=== PATIENT | female | born 2000 | race Caucasian/White ===

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

== ENCOUNTER → 2019-01-08 00:28 | Outpatient (CLI) | payer MEDICAID ==
[2018-12-03 03:29] VITALS: BMI 32.2
[~2019-01-08 00:28] MED LIST changes: +MACROBID100 MG PO
== END | disposition home or self-care (01) ==
LOC: D.LDO 00:28
PROVIDERS: ATTEND Obstetrics & Gynecology
DX: O26.892 Other specified pregnancy related conditions, second trimester (principal); Z3A.22 22 weeks gestation of pregnancy

== ENCOUNTER → 2019-04-26 14:13 | Outpatient (CLI) | payer MEDICAID ==
[2018-12-03 03:29] VITALS: BMI 32.2
[~2019-04-26 14:13] MED LIST changes: +HYDROCODON-ACE1 EA10 PO; +MOTRIN600 MG PO
[2019-04-26 15:36] LABS: APPEARANCE CLEAR (CLEAR); BILIRUBIN NEGATIVE (NEGATIVE); COLOR YELLOW (YELLOW); GLUCOSE NEGATIVE (NEGATIVE); KETONE NEGATIVE (NEGATIVE); NITRITE NEGATIVE (NEGATIVE); PROTEIN NEGATIVE (NEGATIVE); SPECIFIC GRAVITY 1.025 (1.005-1.020); UROBILINOGEN NORMAL (NORMAL)
[2019-04-26 15:37] LABS: RED CELLS - URINE OCC /hpf (0-5); WHITE CELLS - URINE 0-5 /hpf (0-5)
[2019-04-26 15:48] LABS: BACTERIA MANY /hpf (NONE SEEN)
== END | disposition home or self-care (01) ==
LOC: D.LDO 14:13
PROVIDERS: ATTEND Obstetrics & Gynecology
DX: O26.899 Other specified pregnancy related conditions, unspecified trimester (principal); Z3A.00 Weeks of gestation of pregnancy not specified

== ENCOUNTER 2019-05-02 04:55 | Inpatient (IN) | payer MEDICAID ==
[2019-05-02] VITALS (11 sets, daily range): BP systolic 95–121; BP diastolic 51–62; Ht 154.9 cm; Wt 86.8 kg
[~2019-05-02] VITALS: Ht 154.9 cm; Wt 86.8 kg
[~2019-05-02 04:55] MED LIST changes: -HYDROCODON-ACE1 EA10 PO; -MOTRIN600 MG PO
[2019-05-02 07:46] LABS: HEMATOCRIT 33.2 % (36.0-48.0); MCH 21.7 pg (26.0-34.0); MCHC 30.1 g/dL (31.0-37.0); MCV 72.2 fL (80.0-100.0); MEAN PLATELET VOLUME 9.9 fL (7.4-10.4); RBC 4.6 10x6/uL (4.00-5.40); RDW 16.8 % (11.5-14.5); WBC 11.1 10x3/uL (4.8-10.8)
[2019-05-02 08:10] LABS: APPEARANCE HAZY (CLEAR); COLOR YELLOW (YELLOW)
[2019-05-02 08:11] LABS: BILIRUBIN NEGATIVE (NEGATIVE); GLUCOSE NEGATIVE (NEGATIVE); KETONE NEGATIVE (NEGATIVE); NITRITE NEGATIVE (NEGATIVE); PROTEIN NEGATIVE (NEGATIVE); SPECIFIC GRAVITY 1.015 (1.005-1.020)
[2019-05-02 08:13] LABS: BACTERIA MANY /hpf (NONE SEEN); EPITHELIAL CELLS 0-5 /hpf (0-5); RED CELLS - URINE 0-5 /hpf (0-5); WHITE CELLS - URINE >50 /hpf (0-5)
--- NOTE | 2019-05-02 12:21 | NUR ---
PATIENT STATED HAD SOME PALSY IN LEFT ARM, EXTRA CARE POSITIONING WITH PATIENTS INPUT ON COMFORT, PADDED AND SECURED, YEIMI.
--- NOTE | 2019-05-02 12:41 | NUR ---
1226 VIABLE BABY BOY DELIVERED, CORD BLOOD AND GASES DONE AND SENT OUT, YEIMI.
--- NOTE | 2019-05-02 13:25 | NUR ---
PALPATED FUNDUS FIRM AND MIDLINE
--- NOTE | 2019-05-02 13:40 | NUR ---
RECEIVED PT FROM VIA BED TO ROOM 1277. BED LOCKED AND PLACED IN LOW POSITION. VSS. FUNDUS MASSAGED AND FIRM AT U/1. RUBRA LOCHIA HEAVY AMT. NO CLOTS EXPRESSED. PERICARE DONE. CHUX AND PERIPADS CHANGED. DRESSING DRY TO ABDOMEN. ICE PACK TO INCISION. PT UNABLE TO MOVE LEGS FREELY. PIV SITE CLEAR TO RIGHT HAND WITH NS AND PITOCIN INFUSING AT 125 ML/HR. PT STATES INCISIONAL PAIN/PRESSURE OF "2" ON 0-10 PAIN SCALE. ICE CHIPS PROVIDED. PT DENIES NAUSEA. SR UP X 2. CALL LIGHT IN REACH.
--- NOTE | 2019-05-02 14:00 | NUR ---
DILAUDID MERCHANDISING PROFESSOR STARTED ORDERED. PT INSTRUCTED ON MED AND USE OF MERCHANDISING PROFESSOR BUTTON. PT DEMONSTRATES UNDERSTANDING.
--- NOTE | 2019-05-02 14:14 | NUR ---
PT INSTRUCTED ON INCENTIVE SPIROMETER. DEMONSTRATES UNDERSTANDING AND PULLS 2000. PT ALSO PROVIDED SURGICAL PILLOW. FUNDUS FIRM AT U/U. RUBRA LOCHIA MOD AMT. NO CLOTS EXPRESSED ON FUNDAL MASSAGE. PERIPADS CHANGED.
--- NOTE | 2019-05-02 14:46 | NUR ---
FUNDUS FIRM AT U/U. RUBRA LOCHIA SMALL TO MOD AMT. NO CLOTS EXPRESSED. PERIPAD CHANGED. DRESSING DRY WITHOUT DRAINAGE NOTED. PT REPOSITIONS UP IN BED PER SELF. MOVES WELL.
--- NOTE | 2019-05-02 15:43 | NUR ---
PT SITTING UP IN BED. FUNDUS FIRM AT U/U. RUBRA LOCHIA SMALL AMT. NO CLOTS EXPRESSED ON FUNDAL MASSAGE. ABDOMINAL DRESSING DRY WITHOUT DRAINAGE. PT DENIES NAUSEA. PROVIDED SPRITE.
--- NOTE | 2019-05-02 16:55 | NUR ---
PT C/O INCISIONAL PAIN OF "8" ON 0-10 PAIN SCALE. TORADOL 30 MG GIVEN SIVP OVER 2 MINUTES. PT INSTRUCTED ON MED. VERBALIZES UNDERSTANDING. FRESH ICE PACK TO INCISION. INCISION/DRESSING DRY WITHOUT DRAINAGE NOTED. SCANT RUBRA LOCHIA NOTED ON PERIPAD. PT REQUESTS AND RECEIVES ICE WATER.
--- NOTE | 2019-05-02 17:43 | NUR ---
PT IN SEMI-TEJADA'S POSITION. HOLDS INFANT WITH MUCH WARMTH SHOWN. FUNDUS FIRM AT U/U. SEROSANGUINOUS VAGINAL DISCHARGE NOTED-SMALL AMT. NO CLOTS EXPRESSED ON FUNDAL MASSAGE.
--- NOTE | 2019-05-02 19:00 | NUR ---
REPORT GIVEN TO ON COMING SHIFT.
--- NOTE | 2019-05-02 19:33 | NUR ---
ASSESSMENT PER FLOW SHEET, VS OBTAINED, IV IN RIGHT HAND INTACT WITH NO REDNESS OR EDEMA, NEW BAG OF NS WITH PITOCIN HUNG INFUSING VIA PUMP AT 125 ML/HR, PT USING DILAUDID HEAVY MOBILE EQUIPMENT OPERATOR INST, RATES INC PAIN 01/06, REPORTS THAT THE TORADOL WAS WORKING WELL FOR HER, FF, ML, U/U, LITE BLEEDING NOTED WITH NO CLOTS, [employer] WITH DRESSING CDI WITH NO DRAINAGE NOTED, FRESH ICE PACK TO ABD, RIGGS CATH INTACT DRAINING DARK YELLOW URINE, EMPTIED 250 MLS FROM RIGGS CHAMBER TO RIGGS BAG, PT DENIES FLATUS, SCD'S ON AND WORKING PROPERLY, PT INST ON AND DEMONSTRATED I.S. WITH GOOD EFFORT, PT REQUESTED AND SERVED FRESH H20 AND CHICKEN BROTH, PT'S MOM BOTTLE FEEDING INFANT, PT DENIES FURTHER NEEDS, BED IN LOW POSITION, SIDE RAILS X 2, CALL LIGHT IN REACH
[2019-05-02 20:32] LABS: BASOPHILS 0.1 % (0-2); EOSINOPHILS 0.1 % (0-7); HEMATOCRIT 28.6 % (36.0-48.0); HEMOGLOBIN 8.7 g/dL (12-16); IMMATURE GRANULOCYTES 0.2 % (0-5); LYMPHOCYTES 9.2 % (15-50); MCHC 30.4 g/dL (31.0-37.0); MCV 72.2 fL (80.0-100.0); MEAN PLATELET VOLUME 9.6 fL (7.4-10.4); MONOCYTES 5.5 % (2-11); NEUTROPHILS 84.9 % (40-80); RBC 3.96 10x6/uL (4.00-5.40); RDW 16.8 % (11.5-14.5)
[2019-05-02 20:36] LABS: PLATELET COUNT 188 10x3/uL (130-400); WBC 17.3 10x3/uL (4.8-10.8)
--- NOTE | 2019-05-02 20:40 | NUR ---
PT VISITING WITH FAMILY, PT'S MOM REPORTS THAT FEELS COLD, TO NSY VIA OPEN CRIB CART, HODA PEARSON NURSE OBTAINED TEMP, REPORTS TEMP IS GOOD, SWADDLES INFANTS, INFANT BACK TO ROOM VIA OPEN CRIB CART PER THIS RN, INFORMED PT THAT I WILL BE MOVING HER TO ANOTHER ROOM SHORTLY, PT VERBALIZES UNDERSTANDING
--- NOTE | 2019-05-02 21:05 | NUR ---
PT TRANSFERRED VIA BED TO ROOM 1273 PER THIS RN AND HERACLIO MCKINNEY RN, WITH IN OPEN CRIB CART AND PT'S MOM, PT REQUESTED AND SERVED CHICKEN BROTH, TOWELS PROVIDED TO PT'S MOM, PT ORIENTED TO ROOM, BED IN LOW POSITION, SIDE RAILS X 2, CALL LIGHT IN REACH
--- NOTE | 2019-05-02 21:48 | NUR ---
DR EDWARDS PAGED
--- NOTE | 2019-05-02 21:50 | NUR ---
DR EDWARDS CALLS UNIT, REPORT OF PT'S LAB WORK, NO ORDERS RECEIVED AT THIS TIME
--- NOTE | 2019-05-02 22:25 | NUR ---
PT REGISTERED RADIOGRAPHER LIGHT, PT REQUESTS FRESH ICE PACK AND TO CHECK BLEEDING, LITE BLEEDING NOTED WITH NO CLOTS, JOANN PAD CHANGED, FRESH ICE PACK TO ABD, SCD'S CONTINUE ON AND WORKING PROPERLY, PT REQUESTS AND SERVED FRESH H20, PT RATES INC PAIN 01/06, USING INGOT SUPERVISOR INST, DENIES FURTHER NEEDS, PT'S MOM HOLDING INFANT AT THIS TIME
[2019-05-03 00:40] VITALS: BP 124/57
--- NOTE | 2019-05-03 00:40 | NUR ---
PT AWAKE, VS OBTAINED, FF, ML, U/1, LITE BLEEDING NOTED WITH NO CLOTS, PT CLEANED UP WITH WET WARM WASH CLOTH, BLUE CHUX AND JOANN PAD CHANGED, FRESH ICE PACK TO ABD, RIGGS CATH EMPTIED, SCD'S CONTINUE ON AND WORKING PROPERLY, PT INST TO USE I.S. WITH GOOD EFFORT, PT REQUESTED AND SERVED FRESH H20, DENIES FURTHER NEEDS, PT'S MOM AT BEDSIDE
--- NOTE | 2019-05-03 01:04 | NUR ---
ADM TORADOL PER MD ORDERS, SEE EMAR
--- NOTE | 2019-05-03 01:37 | NUR ---
DR EDWARDS PAGED WITH IMMEDIATE CALL BACK, REPORTED THAT PT C/O ITCHING, NEW ORDERS NOTED FOR BENADRYL 25MG IVP NOW
--- NOTE | 2019-05-03 02:26 | NUR ---
PT RESTING WITH EYES CLOSED, RESP QUIET, NO DISTRESS NOTED, LEFT UNDISTURBED AT THIS TIME, PT'S MOM HOLDING
--- NOTE | 2019-05-03 03:53 | NUR ---
PT OLDER WORKER SPECIALIST LIGHT, IV BEEPING, NEW BAG OF NS WITH PITOCIN HUNG AND NEW VIAL OF DILAUDID TO WELDER EXPERIMENTAL, INFORMED PT THAT I WILL BE BACK SHORTLY TO DO VS AND JOANN CARE, PT VERBALIZES UNDERSTANDING, DENIES NEEDS AT THIS TIME
--- NOTE | 2019-05-03 04:30 | NUR ---
PT AWAKE, HOLDING , TO PT'S MOM, VS OBTAINED, FF, ML, U/1, LITE BLEEDING NOTED WITH NO CLOTS, JOANN CARE DONE WITH WET WARM WASH CLOTHS, BLUE CHUX AND JOANN PAD CHANGED, RIGGS CATH EMPTIED, SCD'S CONTINUE ON AND WORKING PROPERLY, PT RATES INC PAIN 11/06, FRESH ICE PACK TO ABD, SERVED FRESH H20, EXTRA PILLOW PROVIDED, DENIES FURTHER NEEDS
[2019-05-03 04:33] VITALS: BP 107/51
[2019-05-03 05:53] LABS: BASOPHILS 0.1 % (0-2); EOSINOPHILS 0.2 % (0-7); HEMATOCRIT 26.3 % (36.0-48.0); IMMATURE GRANULOCYTES 0.2 % (0-5); LYMPHOCYTES 10.1 % (15-50); MCHC 30.4 g/dL (31.0-37.0); MCV 72.3 fL (80.0-100.0); MEAN PLATELET VOLUME 9.1 fL (7.4-10.4); NEUTROPHILS 82.4 % (40-80); PLATELET COUNT 159 10x3/uL (130-400); RBC 3.64 10x6/uL (4.00-5.40); RDW 16.8 % (11.5-14.5)
--- NOTE | 2019-05-03 06:26 | NUR ---
PT RESTING WITH EYES CLOSED, RESP QUIET, NO DISTRESS NOTED, LEFT UNDISTURBED AT THIS TIME, IN OPEN CRIB CART AT BEDSIDE, PT'S MOM AT BEDSIDE
[2019-05-03 07:13] LABS: RAPID PLASMA REAGIN Non Reactive (Non Reactive)
[2019-05-03 07:42] VITALS: BP 122/57
--- NOTE | 2019-05-03 07:42 | NUR ---
RECEIVED PT SITTING UP IN BED. VSS. AAO X 3. HRRR WITHOUT AUDIBLE MURMUR. BBS CLEAR. BS X 4. ABDOMEN SOFT/NON-DISTENDED. FUNDUS FIRM AT U/U. RUBRA LOCHIA SCANT AMT. NO CLOTS NOTED. PERIPAD CHANGED. ABDOMINAL DRESSING DRY WITHOUT DRAINAGE. FRESH ICE PACK TO INCISION. NEG HOMANS' SIGN. PPP. MILD NON-PITTING EDEMA NOTED TO BLE. SCDS ON BLE. PUMP ON. PIV SITE CLEAR TO RIGHT HAND. NS WITH PITOCIN INFUSING. DILAUDID BILL SORTER PER ORDERS. PT C/O INCISIONAL PAIN OF "8" ON 0-10 PAIN SCALE. PT REQUESTS AND RECEIVES ICE WATER. RIGGS TO GRAVITY DRAINING DARK, YELLOW URINE. SR UP X2. CALL LIGHT IN REACH.
--- NOTE | 2019-05-03 07:51 | NUR ---
TORADOL 30 MG GIVEN SIVP OVER 2 MINUTES. PT INSTRUCTED ON MED. VERBALIZES UNDERSTANDING.
--- NOTE | 2019-05-03 08:50 | NUR ---
PT SITTING UP IN BED. CONSUMING BREAKFAST. STATES PAIN RELIEVED BY TORADOL. DENIES NEEDS OR C/O.
--- NOTE | 2019-05-03 10:30 | NUR ---
PT SITTING UP IN BED. VISITS WITH FAMILY. DENIES NEEDS OR C/O. STATES ATE SMALL AMT OF BREAKFAST. DENIES NAUSEA.
[2019-05-03 11:12] VITALS: BP 104/55
--- NOTE | 2019-05-03 11:17 | NUR ---
PIV CONVERTED TO SALINE LOCK. FLUSHES EASILY WITH 10 ML NS. SITE CLEAR. RIGGS DC'D WITH 850 ML OF DARK, YELLOW URINE NOTED IN BAG. PT ERNESTO WELL.
--- NOTE | 2019-05-03 11:22 | NUR ---
NORCO 10/325 GIVEN PO ORDERED FOR PAIN. PT INSTRUCTED ON MED. VERBALIZES UNDERSTANDING.
--- NOTE | 2019-05-03 11:46 | NUR ---
PT OOB AND AMB TO BR. VOIDS 550 ML OF BLOOD-TINGED URINE. PERICARE DONE PER PT. PANTIES AND PAD ON. PT AMB BACK TO BED. ERNESTO ACTIVITY WELL.
--- NOTE | 2019-05-03 13:00 | NUR ---
DR EDWARDS HERE. VISITS WITH PT.
--- NOTE | 2019-05-03 13:28 | NUR ---
PT SITTING UP ON SIDE OF BED. VISITS WITH SO. STATES VOIDED SECOND TIME, BUT EMPTIED HAT.
--- NOTE | 2019-05-03 15:31 | NUR ---
PT C/O ABDOMINAL PAIN OF "8" ON 0-10 PAIN SCALE. MOTRIN 600 MG AND NORCO 10/325 GIVEN PO ORDERED. PT INSTRUCTED ON MED. VERBALIZES UNDERSTANDING.
--- NOTE | 2019-05-03 16:20 | NUR ---
PT SITTING UP IN BED. VISITS WITH FAMILY. DENIES NEEDS OR C/O.
--- NOTE | 2019-05-03 17:30 | NUR ---
PT UP TO SHOWER. LINENS CHANGED.
--- NOTE | 2019-05-03 17:50 | NUR ---
PT FINISHED WITH SHOWER. ERNESTO ACTIVITY WELL. C/O PAIN/ITCHING TO IV SITE. DC'D WITH CATHELON INTACT. PRESSURE BANDAGE TO SITE.
--- NOTE | 2019-05-03 18:43 | NUR ---
PT SITTING UP IN BED. VISITS WITH FAMILY. REQUESTS AND RECEIVES LEMON-OSAGE SODA. DENIES OTHER C/O OR NEEDS.
[2019-05-03 19:29] VITALS: BP 103/54
--- NOTE | 2019-05-03 19:29 | NUR ---
PATIENT SITTING UP IN BED HOLDING . INFANT HANDED TO GRANDMOTHER. ASSESSMENT AND VITAL SIGNS DONE AT THIS TIME. RESPIRATIONS AT EASE. LUNG SOUNDS CLEAR IN ALL VALERIO. HEART REGULAR RATE AND RHYTHM. ABDOMEN SOFT AND TENDER TO TOUCH. BOWEL SOUNDS PRESENT IN ALL QUADRANTS. FUNDUS FIRM AND 2 BELOW UMBILICUS. UTERINE TRANSVERSE INCISION NOTED. INCISION INTACT. 17 BETO NOTED TO INCISION. NO REDNESS, EDEMA, OR DRAINAGE NOTED. NO EDEMA NOTED TO EXTREMITIES. PATIENT STATES PAIN 6 OUT OF 10. BED IN LOWEST POSITION, SIDE RAILS UP X 2, C/L AND WATER WITHIN REACH.
--- NOTE | 2019-05-03 19:43 | NUR ---
PATIENT STATES PAIN 6 OUT OF 10. PRN NORCO 10/325 ADMINISTERED PO AT THIS TIME. PATIENT GIVEN EDUCATION REGARDING INCENTIVE SPIROMETER AND COUGHING AND DEEP BREATHING. PATIENT DEMONSTRATED KNOWLEDGE. DENIES ANY FURTHER NEEDS. BED IN LOWEST POSITION, SIDE RAILS UP X 2, C/L AND WATER WITHIN REACH.
--- NOTE | 2019-05-03 21:35 | NUR ---
PATIENT SITTING UP IN BED. FRIEND AT BEDSIDE. REQUESTS FOR CHICKEN BROTH AND WATER. CHICKEN BROTH AND WATER PROVIDED. PATIENT DENIES FURTHER NEEDS. BED IN LOWEST POSITION, SIDE RAILS UP X 2, C/L AND WATER WITHIN REACH.
--- NOTE | 2019-05-03 23:11 | NUR ---
PT ACCOUNTING SYSTEM EXPERT LIGHT, C/O CRAMPING AND INC PAIN, ADM MOTRIN PER MD ORDERS, SEE EMAR, INFORMED PT THAT I WILL ADM PAIN MED WHEN DUE, PT VERBALIZES UNDERSTANDING, REQUESTED AND SERVED FRESH H20, DENIES FURTHER NEEDS
[2019-05-03 23:56] VITALS: BP 121/64
--- NOTE | 2019-05-03 23:56 | NUR ---
VS OBTAINED, ADM NORCO PER MD ORDERS, SEE EMAR, INFANT TO OPEN CRIB, PT DENIES FURTHER NEEDS
--- NOTE | 2019-05-04 00:45 | NUR ---
PT AWAKE, RATES PAIN 5/10, TO PT'S ARMS FOR FEEDING, PT DENIES FURTHER NEEDS
--- NOTE | 2019-05-04 02:33 | NUR ---
PT RESTING WITH EYES CLOSED, RESP QUIET, NO DISTRESS NOTED, LEFT UNDISTURBED AT THIS TIME
--- NOTE | 2019-05-04 04:29 | NUR ---
PT RESTING WITH EYES CLOSED, RESP QUIET, NO DISTRESS NOTED, LEFT UNDISTURBED AT THIS TIME, IN OPEN CRIB CART AT BEDSIDE, LAYING ON BACK, RESP AT EASE
--- NOTE | 2019-05-04 06:10 | NUR ---
PT RESTING WITH EYES CLOSED, RESP QUIET, NO DISTRESS NOTED, LEFT UNDISTURBED AT THIS TIME, IN OPEN CRIB CART AT BEDSIDE
--- NOTE | 2019-05-04 07:00 | NUR ---
DR EDWARDS ON UNIT. VISITS WITH PT. ORDERS RECEIVED TO DC HOME; F/U ON WEDNESDAY FOR STAPLE REMOVAL.
[2019-05-04 07:47] VITALS: BP 116/56
--- NOTE | 2019-05-04 07:49 | NUR ---
RECEIVED PT SITTING UP IN BED. AAO X 3. VSS. HRRR WITHOUT AUDIBLE MURMUR. BBS CLEAR. BS X 4. ABDOMEN SOFT/NON-DISTENDED. ABDOMINAL INCISION WITHOUT REDNESS, SWELLING OR DRAINAGE NOTED. NEG HOMANS' SIGN. PPP. MILD NON-PITTING EDEMA NOTED TO BLE. PT C/O ABDOMINAL PAIN OF "7" ON 0-10 PAIN SCALE. MOTRIN 600 MG AND NORCO 10/325 GIVEN PO ORDERED. PT INSTRUCTED ON MED. VERBALIZES UNDERSTANDING.
--- NOTE | 2019-05-04 09:30 | NUR ---
PT SITTING UP IN BED. VISITS WITH MOTHER. DENIES C/O PAIN OR NEEDS.
[2019-05-04] MEDS ORDERED: HYDROCODON-ACE1 EA10 PO (09:57)
[2019-05-04] MEDS ORDERED: MOTRIN600 MG PO (09:57)
--- NOTE | 2019-05-04 10:10 | NUR ---
DISCHARGE INSTRUCTIONS GIVEN TO PT. PT VERBALIZES UNDERSTANDING OF ALL INSTRUCTIONS. COPIES GIVEN TO PT. RX FOR NORCO AND MOTRIN GIVEN TO PT. PT AWAITS INFANT'S DISCHARGE.
--- NOTE | 2019-05-04 11:58 | NUR ---
PT C/O ABDOMINAL PAIN OF "8" ON 0-10 PAIN SCALE. NORCO 10/325 GIVEN PO ORDERED. PT INSTRUCTED ON MED. VERBALIZES UNDERSTANDING.
--- NOTE | 2019-05-04 12:04 | NUR ---
PT READY FOR DISCHARGE. DISCHARGED IN STABLE CONDITION WITH VIA WHEELCHAIR PER AUXILIARY STAFF TO PRIVATE VEHICLE.
--- NOTE | 2019-05-15 13:26 | OP ---
PATIENT NAME: MAGDI OLIVER MEDICAL RECORD: [id number] :99 LOCATION:[id number] ADMISSION DATE:05/02/19 SURGEON: MORRO LOPEZ MD DATE OF OPERATION: 05/02/2019 PREOPERATIVE DIAGNOSES: 1. Term intrauterine at 39 weeks. 2. Nuchal cord. 3. intolerance to labor. POSTOPERATIVE DIAGNOSES: 1. Term intrauterine at 39 weeks. 2. Nuchal cord. PROCEDURE: Primary low transverse section. SURGEON: Morro Lopez MD ANESTHESIA: Regional via epidural. SPECIMENS: Include placenta and cord for gases. ESTIMATED BLOOD LOSS: 800 cc. INTRAVENOUS FLUIDS: Per anesthesia record. FINDINGS: 1. Viable infant. 2. Tight nuchal cord times 2 with partial right cord. 3. Placenta delivered manually intact. 4. 3-vessel cord was noted. 5. Normal adnexa bilaterally. COMPLICATIONS: None apparent. DESCRIPTION OF PROCEDURE: The patient taken to the operating room where regional anesthesia was achieved without difficulty. The patient was then prepped and draped in normal sterile fashion in the dorsal supine position. SCDs were on and functioning normally and a Snyder catheter was placed and was draining freely. At this point, a Pfannenstiel skin incision was made and extended downward to the underlying subcutaneous fat to level of fascia. The fascia was then nicked to the midline and excised bilaterally using the Powers scissors. The superior and inferior aspects of the fascial incision were then grasped with Alf clamps times 2, tented upward, and sharply dissected from the underlying rectus muscle using the Powers scissors and the Bovie cautery. At this point, the rectus muscles were then bluntly in the midline and the peritoneum entered sharply at the superior aspect of the incision using the Metzenbaum scissors. Peritoneal incision was extended bilaterally using the same scissors and a bladder flap was created by excising the anterior leaf of the broad ligament across the lower uterine segment. This was further developed bluntly and a bladder blade was then placed into the pelvis. A low transverse incision was made using the scalpel and the uterine incision was extended using the Pelosi method. The head and body were then delivered atraumatically and was bulb suctioned immediately upon delivery. Cord was then clamped times 2 and cut and the infant was handed to awaiting nursery team. Cord was then OPERATIVE REPORT [id number] OLIVER,MAGDI ALONDRA obtained for gases. The placenta was removed manually intact, 3-vessel cord was noted. The uterus was exteriorized, cleared of all clots and debris and vigorously massaged until good uterine tone was noted. The uterine incision was then repaired with 0 Vicryl in a running locked fashion times 2 with good hemostasis noted. Posterior cul-de-sac was then thoroughly irrigated and uterus was replaced into the pelvis. The anterior cul-de-sac was then thoroughly irrigated and good hemostasis was again noted from the uterine incision. Counts were correct times 2 for sponges, needles, and instruments and the fascia was repaired with 0 loop PDS times 1 and the skin was repaired with a running subcutaneous stitch using a 3-0 Monocryl and Dermabond. The patient tolerated the procedure well, transferred to postanesthesia recovery stable without incident. TRANSINT:[id number] Voice Confirmation ID: [id number] DOCUMENT ID: [id number] MORRO LOEPZ MD at 1326 CC: [id number] DICTATION DATE: 05/12/19 1046 WOOD GLUER: 05/12/19 1157 DIS IN 05/04/19 [facility] [address] [place] [address]
== END 2019-05-04 12:04 | disposition home or self-care (01) | DRG 788 ==
LOC: D.LD 04:55 → D.SDCHOLD 05-03 09:05 → D.LD 05-03 09:05 → D.SDCHOLD 05-03 14:25 → D.LD 05-03 14:25
PROVIDERS: ADMIT Obstetrics & Gynecology; ATTEND Obstetrics & Gynecology
PROC: 10907ZC Drainage of Amniotic Fluid, Therapeutic from Products of Conception, Via Natural or Artificial Opening (ICD-10-PCS; 2019-05-02)
PROC: 3E033VJ Introduction of Other Hormone into Peripheral Vein, Percutaneous Approach (ICD-10-PCS; 2019-05-02)
PROC: 10D00Z1 Extraction of Products of Conception, Low, Open Approach (ICD-10-PCS; principal; 2019-05-02 12:16)
DX: O99.02 Anemia complicating childbirth (principal); D64.9 Anemia, unspecified; Z3A.39 39 weeks gestation of pregnancy; Z37.0 Single live birth; O76 Abnormality in fetal heart rate and rhythm complicating labor and delivery; O99.344 Other mental disorders complicating childbirth; F41.9 Anxiety disorder, unspecified; O69.81X0 Labor and delivery complicated by cord around neck, without compression, not applicable or unspecified

== ENCOUNTER 2019-05-16 11:51 | Emergency (ER) | payer SELFPAY ==
[~2019-05-16] VITALS: Ht 154.9 cm; Wt 78.6 kg
[~2019-05-16 11:51] MED LIST changes: +HYDROCODON-ACE1 EA10 PO; +MOTRIN600 MG PO
[2019-05-16 12:11] VITALS: Ht 154.9 cm; Wt 78.6 kg
[2019-05-16 13:38] VITALS: BP 113/62
== END 2019-05-16 13:39 | disposition home or self-care (01) ==
LOC: D.ER 11:51
DX: O90.89 Other complications of the puerperium, not elsewhere classified (principal)

== ENCOUNTER 2020-03-17 18:53 | Emergency (ER) | payer MEDICAID ==
[~2020-03-17] VITALS: Ht 154.9 cm; Wt 63.6 kg
[2020-03-17 19:06] VITALS: Ht 154.9 cm; Wt 63.6 kg
[2020-03-17 19:28] LABS: BASOPHILS 0.2 % (0-2); EOSINOPHILS 1.8 % (0-7); HEMATOCRIT 42.4 % (36.0-48.0); HEMOGLOBIN 13.4 g/dL (12-16); IMMATURE GRANULOCYTES 0.2 % (0-5); LYMPHOCYTES 42.2 % (15-50); MCH 25.1 pg (26.0-34.0); MCHC 31.6 g/dL (31.0-37.0); MCV 79.4 fL (80.0-100.0); MEAN PLATELET VOLUME 9.1 fL (7.4-10.4); MONOCYTES 9.2 % (2-11); NEUTROPHILS 46.4 % (40-80); PLATELET COUNT 182 10x3/uL (130-400); RBC 5.34 10x6/uL (4.00-5.40)
[2020-03-17 19:32] LABS: HCG URINE NEGATIVE (NEGATIVE)
[2020-03-17 19:36] LABS: BILIRUBIN NEGATIVE (NEGATIVE); GLUCOSE NEGATIVE (NEGATIVE); KETONE NEGATIVE (NEGATIVE); NITRITE NEGATIVE (NEGATIVE); SPECIFIC GRAVITY 1.015 (1.005-1.020); UROBILINOGEN NORMAL (NORMAL)
[2020-03-17 19:37] LABS: BACTERIA FEW /hpf (NEGATIVE)
[2020-03-17 19:41] LABS: CALC OSMOLALITY 271 mosm/kg (275-300); CALCIUM 8.8 mg/dL (8.5-10.1); CARBON DIOXIDE 26.6 mmol/L (21.0-32.0); CHLORIDE - SERUM 103 mmol/L (98-107); CREATININE - SERUM 0.7 mg/dL (0.6-1.3); GLUCOSE 86 mg/dL (74-106); POTASSIUM - SERUM 3.3 mmol/L (3.5-5.1); SODIUM 137 mmol/L (136-145); UDS - AMPHET NEGATIVE QUAL (NEGATIVE); UDS - BARB NEGATIVE QUAL (NEGATIVE); UDS - BENZO NEGATIVE QUAL (NEGATIVE); UDS - COCAINE NEGATIVE QUAL (NEGATIVE); UDS - OPIATE NEGATIVE QUAL (NEGATIVE); UDS - PCP NEGATIVE QUAL (NEGATIVE); UDS - THC NEGATIVE QUAL (NEGATIVE); UREA NITROGEN 10 mg/dL (7-18); eGFR NON AFRICAN AMERICAN > 90 mL/min (90-120)
[2020-03-17 19:54] LABS: HCG SERUM NEGATIVE (NEGATIVE)
[2020-03-17 20:08] LABS: ALBUMIN 4.2 g/dL (3.4-5.0); ALKALINE PHOSPHATASE 99 U/L (30-120); ALT (SGPT) 23 U/L (10-68); BILIRUBIN - TOTAL 0.34 mg/dL (0.2-1.3); C-REACTIVE PROTEIN 1.1 mg/dL (0.0-0.9); CREATINE KINASE 390 UL (21-215); LIPASE 56 U/L (73-393); PROTEIN - SERUM 7.8 g/dL (6.4-8.2); THYROID STIMULATING HORMONE 1.04 uIU/mL (0.36-3.74)
[2020-03-17 20:11] LABS: CKMB 1.8 U/L (0.0-3.6)
[2020-03-17 20:54] VITALS: BP 132/70
== END 2020-03-17 21:00 | disposition home or self-care (01) ==
LOC: D.ER 18:53
PROVIDERS: Family Medicine
DX: R55 Syncope and collapse (principal)

== ENCOUNTER 2021-02-20 11:26 | Emergency (ER) | payer MEDICAID ==
[~2021-02-20] VITALS: Ht 154.9 cm; Wt 72.7 kg
[2021-02-20 11:31] VITALS: Ht 154.9 cm; Wt 72.7 kg
[2021-02-20 11:57] LABS: BASOPHILS 0.3 % (0-2); HEMATOCRIT 40.2 % (36.0-48.0); HEMOGLOBIN 13.3 g/dL (12-16); LYMPHOCYTES 27.4 % (15-50); MCH 26.9 pg (26.0-34.0); MCV 81.4 fL (80.0-100.0); MEAN PLATELET VOLUME 7.7 fL (7.4-10.4); MONOCYTES 6.8 % (2-11); NEUTROPHILS 64.5 % (40-80); PLATELET COUNT 211 10x3/uL (130-400); RBC 4.94 10x6/uL (4.00-5.40); RDW 13.5 % (11.5-14.5); WBC 9.4 10x3/uL (4.8-10.8)
[2021-02-20 12:01] LABS: HCG URINE NEGATIVE (NEGATIVE)
[2021-02-20 12:04] LABS: CALC OSMOLALITY 272 mosm/kg (275-300); CARBON DIOXIDE 26.8 mmol/L (21.0-32.0); CHLORIDE - SERUM 104 mmol/L (98-107); CREATININE - SERUM 0.6 mg/dL (0.6-1.3); GLUCOSE 89 mg/dL (74-106); POTASSIUM - SERUM 4.1 mmol/L (3.5-5.1); SODIUM 137 mmol/L (136-145); UREA NITROGEN 12 mg/dL (7-18); eGFR NON AFRICAN AMERICAN > 90 mL/min (90-120)
[2021-02-20 12:05] LABS: BACTERIA MOD HPF (<MOD); BILIRUBIN NEGATIVE (NEGATIVE); KETONE NEGATIVE mg/dL (< 1+); NITRITE NEGATIVE (NEGATIVE); PH 6.5 (5.0-8.0); SQUAMOUS EPITHELIAL 16 HPF (0-4); UROBILINOGEN NORMAL mg/dL (< 2); WHITE CELLS - URINE 94 HPF (0-4)
[2021-02-20 12:10] LABS: ALBUMIN 3.9 g/dL (3.4-5.0); ALKALINE PHOSPHATASE 97 U/L (30-120); ALT (SGPT) 16 U/L (10-68); BILIRUBIN - TOTAL 0.26 mg/dL (0.2-1.3); PROTEIN - SERUM 7.5 g/dL (6.4-8.2)
[2021-02-20] MEDS ORDERED: OMNICEF300 MG PO (15:32)
[2021-02-20] MEDS ORDERED: FLAGYL500 MG PO (15:32)
[2021-02-20 15:53] VITALS: BP 121/73
== END 2021-02-20 15:54 | disposition home or self-care (01) ==
LOC: D.ER 11:26
PROVIDERS: Family Medicine
DX: K29.70 Gastritis, unspecified, without bleeding (principal); K21.9 Gastro-esophageal reflux disease without esophagitis; R10.10 Upper abdominal pain, unspecified; R07.9 Chest pain, unspecified; R51.9 Headache, unspecified